=== PATIENT | male | born 1975 | race Hispanic/Latino ===

== ENCOUNTER 2022-08-16 17:55 | Inpatient (IN) | payer SELFPAY ==
[~2022-08-16 17:55] MED LIST: Iopamidol-370 76% 500 ML 1 ML ONE
[2022-08-16] MEDS ORDERED: Ketorolac Tromethamine 30 MG/ML VIAL ONE (18:40)
[2022-08-16] MEDS ORDERED: Lidocaine 4% Cream 5 GM TUBE w/ Tegaderm ONE (18:40)
[2022-08-16 19:05] LABS: #Eosinphils 0.1 thou/uL (0.0-0.7); #Lymphocytes 1.3 thou/uL (1.20-3.40); #Monocytes 0.6 thou/uL (0.11-0.59); #Neutrophils 6.6 thou/uL (1.40-6.50); %Basophils 0.6 % (0.0-1.0); %Eosinophils 1.4 % (0.0-10.0); %Lymphocytes 15.4 % (21.0-51.0); %Monocytes 6.8 % (0.0-10.0); %Neutrophils 75.9 % (42.0-75.0); Mean Corpuscular HGB CONC 29.3 g/dL (32.0-36.0); Mean Corpuscular Hemoglobin 18.7 pg (27.0-31.0); Platelet Count 632 10x3/uL (130-400); RBC Distribution Width 19.1 % (11.5-14.5); White Blood Cell (WBC) Count 8.7 10x3/uL (4.8-10.8)
[2022-08-16 19:26] LABS: ALT (SGPT) 44 U/L (8-55); AST (SGOT) 73 U/L (5-34); Albumin 4.3 g/dL (3.5-5.0); Alkaline Phosphatase 57 U/L (40-110); Anion Gap 16 mmol/L (10-20); BUN (Urea Nitrogen) 6 mg/dL (8.9-20.6); Bilirubin, Total 0.4 mg/dL (0.2-1.2); Calc. Creatinine Clearance 0 mL/min (70-130); Carbon Dioxide 19 mmol/L (22-29); Chloride 106 mmol/L (98-107); Estimated GFR 113; Globulin 3.6 g/dL (2.4-3.5); Glucose 93 mg/dL (70-105); Potassium 3.6 mmol/L (3.5-5.1); Protein, Total 7.9 g/dL (6.0-8.3); Sodium 137 mmol/L (136-145)
[2022-08-16 19:29] LABS: Hypochromia SLIGHT = 6-15 cells (100X) (0-5/hpf); MDiff Complete? YES; Microcytosis SLIGHT = 6-15 cells (100X) (0-5/hpf); Platelet Morphology Comment Appears Increased; Reflex for Review?? YES
[2022-08-16] MEDS ORDERED: Lorazepam 1 MG TAB PO PRN (21:17)
[2022-08-16] MEDS ORDERED: Ondansetron ODT 4 MG TAB PO PRN (21:17)
[2022-08-16] MEDS ORDERED: Lorazepam 2 MG/ML VIAL IM PRN (21:17)
[2022-08-16] MEDS ORDERED: Electrolyte Replacement Protocol 1 EACH FS SCH (21:30)
[2022-08-16 22:00] LABS: Bilirubin, Direct 0.1 mg/dL (0.1-0.3); Iron 8 ug/dL (65-175); Magnesium 2.1 mg/dL (1.6-2.6); Phosphorus 3.3 mg/dL (2.3-4.7)
[2022-08-16 22:50] VITALS: BMI 29.5
[2022-08-16] MEDS: Lorazepam 1 MG TAB PO SCH (23:18)
[2022-08-16] MEDS: Morphine 4 MG/ML VIAL SLOW IVP PRN (23:19)
[2022-08-16] MEDS: Thiamine HCl 200 MG/2 ML VIAL SLOW IVP SCH (23:19)
[2022-08-17] MEDS: Sodium Chloride 0.9% 1,000 ML IV SCH ×3 (01:26→16:04)
[2022-08-17] MEDS: Morphine 4 MG/ML VIAL SLOW IVP PRN ×4 (03:39→17:53)
[2022-08-17] MEDS: Lorazepam 1 MG TAB PO SCH ×2 (03:40→08:08)
[2022-08-17 06:12] LABS: #Eosinphils 0.2 thou/uL (0.0-0.7); #Lymphocytes 1.5 thou/uL (1.20-3.40); #Monocytes 0.5 thou/uL (0.11-0.59); %Basophils 0.8 % (0.0-1.0); %Eosinophils 4.5 % (0.0-10.0); %Lymphocytes 28.8 % (21.0-51.0); %Monocytes 9.6 % (0.0-10.0); %Neutrophils 56.3 % (42.0-75.0); Hemoglobin 6.5 g/dL (14.0-18.0); Mean Corpuscular HGB CONC 29.6 g/dL (32.0-36.0); Mean Corpuscular Volume 67.4 fl (78.0-98.0); Mean Platelet Volume 9.5 fL (7.4-10.4); Platelet Count 531 10x3/uL (130-400); RBC Distribution Width 21.6 % (11.5-14.5); Red Blood Cell (RBC) Count 3.23 mill/uL (4.70-6.10); White Blood Cell (WBC) Count 5.3 10x3/uL (4.8-10.8)
[2022-08-17 06:50] LABS: ALT (SGPT) 33 U/L (8-55); AST (SGOT) 42 U/L (5-34); Albumin 3.5 g/dL (3.5-5.0); Alkaline Phosphatase 48 U/L (40-110); Anion Gap 9 mmol/L (10-20); BUN (Urea Nitrogen) 6 mg/dL (8.9-20.6); Bilirubin, Total 1.1 mg/dL (0.2-1.2); Calc. Creatinine Clearance 144 mL/min (70-130); Calcium 8.5 mg/dL (7.8-10.44); Carbon Dioxide 23 mmol/L (22-29); Chloride 109 mmol/L (98-107); Estimated GFR 114; Glucose 100 mg/dL (70-105); Potassium 3.6 mmol/L (3.5-5.1); Protein, Total 6.5 g/dL (6.0-8.3); Sodium 137 mmol/L (136-145)
[2022-08-17] MEDS: Pantoprazole 40 MG VIAL IVP SCH ×2 (08:08→19:48)
[2022-08-17] MEDS: Folic Acid 1 MG TAB PO SCH (08:08)
[2022-08-17] MEDS: Multivit, Therapeutic 1 TAB PO SCH (08:08)
[2022-08-17] MEDS: Lidocaine 4% Cream 5 GM TUBE w/ Tegaderm TOP SCH ×2 (11:58→17:54)
[2022-08-17] MEDS ORDERED: Iron Sucrose Complex 200 MG in Sodium Chloride 0.9% 100 ML IVPB SCH (15:00)
[2022-08-17] MEDS ORDERED: Iron, Sodium Ferric Gluconate 250 MG in Sodium Chloride 0.9% 250 ML 250 ML IVPB SCH (15:15)
[2022-08-17] MEDS ORDERED: Milk Of Magnesia 30 ML UDCUP PO PRN (18:42)
[2022-08-17] MEDS ORDERED: Milk Of Magnesia 30 ML UDCUP PO SCH (18:45)
[2022-08-17] MEDS ORDERED: Acetaminophen 500 MG TAB PO SCH (18:45)
[2022-08-17] MEDS ORDERED: Ketorolac Tromethamine 30 MG/ML VIAL IVP SCH (18:45)
[2022-08-17 19:34] LABS: Hemoglobin 7.7 g/dL (14.0-18.0)
[2022-08-17] MEDS: traMADol HCl 50 MG TAB PO PRN (19:46)
[2022-08-17] MEDS: Senokot S 8.6-50 MG TAB PO SCH (19:47)
[2022-08-17] MEDS: Methylcellulose 500 MG TAB PO SCH (19:47)
[2022-08-17] MEDS: Polyethylene Glycol 3350 17 GM Packet PO SCH (19:48)
[2022-08-17] MEDS ORDERED: Lorazepam 1 MG TAB PO PRN (21:17)
[2022-08-17] MEDS: Thiamine HCl 200 MG/2 ML VIAL SLOW IVP SCH (21:57)
[2022-08-18] MEDS: Ketorolac Tromethamine 30 MG/ML VIAL IVP SCH ×5 (00:35→23:38)
[2022-08-18] MEDS: Sodium Chloride 0.9% 1,000 ML IV SCH (00:36)
[2022-08-18] MEDS: Lidocaine 4% Cream 5 GM TUBE w/ Tegaderm TOP SCH ×5 (00:38→23:38)
[2022-08-18] MEDS: Acetaminophen 500 MG TAB PO PRN ×5 (00:40→23:40)
[2022-08-18] MEDS: traMADol HCl 50 MG TAB PO PRN ×5 (00:40→23:39)
[2022-08-18 07:08] LABS: Reticulocyte Count 1.6 % (0.5-1.5)
[2022-08-18 07:18] LABS: INR-International Normal Ratio 1.3; PTT 33.9 sec (22.9-36.1); Prothrombin Time 16.7 sec (12.0-14.7)
[2022-08-18 07:19] LABS: Anion Gap 10 mmol/L (10-20); BUN (Urea Nitrogen) 6 mg/dL (8.9-20.6); Calc. Creatinine Clearance 144 mL/min (70-130); Calcium 8.6 mg/dL (7.8-10.44); Carbon Dioxide 25 mmol/L (22-29); Chloride 108 mmol/L (98-107); Estimated GFR 114; Glucose 91 mg/dL (70-105); Magnesium 2.1 mg/dL (1.6-2.6); Phosphorus 3.5 mg/dL (2.3-4.7); Potassium 3.6 mmol/L (3.5-5.1); Sodium 139 mmol/L (136-145)
[2022-08-18 07:28] LABS: #Eosinphils 0.2 thou/uL (0.0-0.7); #Monocytes 0.6 thou/uL (0.11-0.59); #Neutrophils 3.1 thou/uL (1.40-6.50); %Basophils 0.8 % (0.0-1.0); %Eosinophils 2.7 % (0.0-10.0); %Lymphocytes 33.4 % (21.0-51.0); %Monocytes 9.8 % (0.0-10.0); %Neutrophils 53.4 % (42.0-75.0); Hemoglobin 7.7 g/dL (14.0-18.0); Mean Corpuscular HGB CONC 30.1 g/dL (32.0-36.0); Mean Corpuscular Hemoglobin 21.4 pg (27.0-31.0); Mean Corpuscular Volume 71.2 fl (78.0-98.0); Mean Platelet Volume 9.5 fL (7.4-10.4); Platelet Count 549 10x3/uL (130-400); RBC Distribution Width 23.3 % (11.5-14.5); Red Blood Cell (RBC) Count 3.59 mill/uL (4.70-6.10); White Blood Cell (WBC) Count 5.9 10x3/uL (4.8-10.8)
[2022-08-18 08:23] LABS: Hypochromia MODERATE=16-30 cells (100X) (0-5/hpf); MDiff Complete? YES; Microcytosis MODERATE=15-30 cells (100X) (0-5/hpf); Platelet Morphology Comment Appears Increased; Polychromasia MODERATE = 3-4 cells (100X) (0-2/hpf)
[2022-08-18] MEDS: Multivit, Therapeutic 1 TAB PO SCH (08:58)
[2022-08-18] MEDS: Methylcellulose 500 MG TAB PO SCH ×2 (08:58→20:46)
[2022-08-18] MEDS: Folic Acid 1 MG TAB PO SCH (08:58)
[2022-08-18] MEDS: Senokot S 8.6-50 MG TAB PO SCH (08:58)
[2022-08-18] MEDS: Polyethylene Glycol 3350 17 GM Packet PO SCH ×2 (08:59→20:45)
[2022-08-18] MEDS: Morphine 4 MG/ML VIAL SLOW IVP PRN ×2 (08:59→16:25)
[2022-08-18] MEDS: Thiamine HCl 200 MG/2 ML VIAL SLOW IVP SCH (20:46)
[2022-08-18] MEDS ORDERED: Lorazepam 1 MG TAB PO PRN (21:17)
[2022-08-18] MEDS ORDERED: Lorazepam 0.5 MG TAB PO SCH (21:30)
[2022-08-19] MEDS: traMADol HCl 50 MG TAB PO PRN ×2 (05:21→11:37)
[2022-08-19] MEDS: Ketorolac Tromethamine 30 MG/ML VIAL IVP SCH ×2 (05:22→11:38)
[2022-08-19] MEDS: Acetaminophen 500 MG TAB PO PRN ×2 (05:23→11:37)
[2022-08-19] MEDS: Lidocaine 4% Cream 5 GM TUBE w/ Tegaderm TOP SCH ×2 (05:23→11:37)
[2022-08-19 08:30] VITALS: TEMP 97.8
[2022-08-19] MEDS: Folic Acid 1 MG TAB PO SCH (08:38)
[2022-08-19] MEDS: Multivit, Therapeutic 1 TAB PO SCH (08:38)
[2022-08-19] MEDS: Methylcellulose 500 MG TAB PO SCH (08:38)
[2022-08-19] MEDS: Polyethylene Glycol 3350 17 GM Packet PO SCH (08:38)
[2022-08-19 08:49] LABS: Hemoglobin 7.5 g/dL (14.0-18.0); Mean Corpuscular HGB CONC 29.3 g/dL (32.0-36.0); Mean Corpuscular Hemoglobin 20.8 pg (27.0-31.0); Mean Corpuscular Volume 71.1 fl (78.0-98.0); Mean Platelet Volume 9.1 fL (7.4-10.4); Platelet Count 598 10x3/uL (130-400); RBC Distribution Width 23.6 % (11.5-14.5); Red Blood Cell (RBC) Count 3.58 mill/uL (4.70-6.10); White Blood Cell (WBC) Count 7.1 10x3/uL (4.8-10.8)
[2022-08-19 08:50] LABS: #Eosinphils 0.2 thou/uL (0.0-0.7); #Lymphocytes 1.2 thou/uL (1.20-3.40); #Monocytes 0.4 thou/uL (0.11-0.59); #Neutrophils 5.3 thou/uL (1.40-6.50); %Basophils 0.3 % (0.0-1.0); %Lymphocytes 17.1 % (21.0-51.0); %Monocytes 5.7 % (0.0-10.0); %Neutrophils 73.8 % (42.0-75.0)
[2022-08-19 08:53] LABS: Anion Gap 8 mmol/L (10-20); BUN (Urea Nitrogen) 6 mg/dL (8.9-20.6); Calc. Creatinine Clearance 146 mL/min (70-130); Calcium 8.4 mg/dL (7.8-10.44); Carbon Dioxide 26 mmol/L (22-29); Chloride 105 mmol/L (98-107); Estimated GFR 115; Glucose 87 mg/dL (70-105); Potassium 3.8 mmol/L (3.5-5.1); Sodium 135 mmol/L (136-145)
[2022-08-19 09:41] LABS: MDiff Complete? YES
[2022-08-19 09:42] LABS: Anisocytosis MODERATE=16-30 cells (100X) (0-5/hpf); Hypochromia MODERATE=16-30 cells (100X) (0-5/hpf); Platelet Morphology Comment Appears Increased; Polychromasia MODERATE = 3-4 cells (100X) (0-2/hpf)
[2022-08-19 17:00] VITALS: BP 130/80
[2022-08-19] MEDS ORDERED: Thiamine 100 MG TAB PO SCH (21:00)
[2022-08-19] MEDS ORDERED: Lorazepam 0.5 MG TAB PO PRN (21:17)
== END 2022-08-19 17:45 | disposition home or self-care (01) | DRG 394 ==
LOC: ERS 17:55 → T4-B 21:12
PROVIDERS: ADMIT Family Medicine; ATTEND Internal Medicine
PROC: 30233N1 Transfusion of Nonautologous Red Blood Cells into Peripheral Vein, Percutaneous Approach (ICD-10-PCS; principal; 2022-08-16)
DX: K64.5 Perianal venous thrombosis (principal); D62 Acute posthemorrhagic anemia; F10.20 Alcohol dependence, uncomplicated; D50.9 Iron deficiency anemia, unspecified; E87.6 Hypokalemia; K70.11 Alcoholic hepatitis with ascites; K80.20 Calculus of gallbladder without cholecystitis without obstruction; D75.839 Thrombocytosis, unspecified; Z20.822 Contact with and (suspected) exposure to COVID-19
CPT/HCPCS: 36415; 36430; 74177; 76700; 76705; 80048; 80053; 82248; 82728; 83540; 83550; 83735; 84100; 84425; 85025; 85046; 85060; 85610; 85730; 86850; 86900; 86901; 96374; C9113; J1885; J2270; J3411; J7050; P9016; Q9967; U0003; U0005